=== PATIENT | female | born 1930 | race Caucasian/White ===

== ENCOUNTER 2016-02-20 12:02 | Emergency (ER) | payer MEDICARE ==
[~2016-02-20] VITALS: Ht 170.1 cm; Wt 77.1 kg
[~2016-02-20 12:02] MED LIST: ALPHAGAN P 5 ML5 M1 OS; AMOXIL500 MG PO; ASPIRIN81 M1 PO; ATENOLOL25 MG PO; ATROPINE 1% OD; ATROPINE 1% OPHT5 M1 OS; AVAPRO150 MG; BENICAR40 MG PO; CLONIDINE HCL0.2 MG PO; CLONIDINE0.3 MG PO; DARVOCET N 1001 TAB PO; DUREZOL 5 ML5 ML OS; Econopred Plus 15 ML OD; HYDR12.5C PO; HYDRALAZINE HYD50 MG PO; LEVOTHYROXINE0.05 MG PO; LISINOPRIL HCTZ1 TA1 PO; LISINOPRIL/HCTZ1 TA4 PO; LISINOPRIL20 MG PO; LUMIGAN50 DRP OS; MEDROL DOSEPAK4 MG PO; NO DAILY MEDS; NORVASC10 MG PO; NORVASC5 MG PO; PRILOSEC OTC20 MG PO; Synthroid,Levo25 MCG PO; TOBRADEX 0.3-03.5 GM OD; VALSARTAN160 MG PO; VALSARTAN80 MG PO; ZOFRAN ODT4 MG SL; ZYRTEC10 M2 PO
[2016-02-20 12:30] VITALS: BP 173/74
== END 2016-02-20 14:16 | disposition home or self-care (01) ==
LOC: ED 12:02
DX: S20.211A Contusion of right front wall of thorax, initial encounter (principal); I10 Essential (primary) hypertension; Z79.82 Long term (current) use of aspirin; Z91.030 Bee allergy status; W19.XXXA Unspecified fall, initial encounter; Y93.89 Activity, other specified; Y92.9 Unspecified place or not applicable; Y99.9 Unspecified external cause status

== ENCOUNTER 2016-07-21 20:13 | Emergency (ER) | payer MEDICARE ==
[~2016-07-21] VITALS: Ht 165.1 cm; Wt 81.2 kg
[2016-07-21 21:08] VITALS: BP 147/81
[2016-07-21] MEDS ORDERED: ATENOLOL25 MG PO (21:10)
[2016-07-21] MEDS ORDERED: COZAAR100 MG PO (21:10)
[2016-07-21] MEDS ORDERED: CEPHALEXIN500 M1 PO (21:25)
[2016-07-21] MEDS ORDERED: PREDNISONE10 MG PO (21:25)
== END 2016-07-21 21:29 | disposition home or self-care (01) ==
LOC: ED 20:13
DX: L24.9 Irritant contact dermatitis, unspecified cause (principal); H10.89 Other conjunctivitis; Z91.030 Bee allergy status; Z79.82 Long term (current) use of aspirin; Z79.899 Other long term (current) drug therapy

== ENCOUNTER 2016-12-11 11:11 | Emergency (ER) | payer MEDICARE ==
[~2016-12-11] VITALS: Ht 167.6 cm; Wt 81.6 kg
[~2016-12-11 11:11] MED LIST changes: +CEPHALEXIN500 M1 PO; +COZAAR100 MG PO; +PREDNISONE10 MG PO
[2016-12-11 11:21] VITALS: BP 157/78
== END 2016-12-11 11:49 | disposition home or self-care (01) ==
LOC: ED 11:11
DX: T63.484A Toxic effect of venom of other arthropod, undetermined, initial encounter (principal); Y93.89 Activity, other specified; Y92.89 Other specified places as the place of occurrence of the external cause; Y99.8 Other external cause status; Z91.030 Bee allergy status

== ENCOUNTER 2018-01-10 19:56 | Inpatient (IN) | payer MEDICARE ==
[~2018-01-10] VITALS: Ht 165.1 cm; Wt 77.3 kg
--- NOTE | ~2018-01-10 | EKG ---
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
--- NOTE | ~2018-01-10 | PR ---
[place], [place] PROGRESS NOTE NAME: ODALIS SANCHEZ UNIT #: [id number] ROOM: 532 DOCTOR: LAWRENCE CASTILLO MD BIRTHDATE: [birth year] DOS: 01/12/2018 SUBJECTIVE: The patient has some nausea, also complains of lower back pains. No increasing shortness of breath. Blood pressures and heart rates have improved. OBJECTIVE: GENERAL APPEARANCE: The patient is alert and oriented x 3, in no visible distress. VITAL SIGNS: Blood pressure 139/71, heart rate 78 beats per minute, breathing 18 times per minute, afebrile. HEENT AND NECK: Exam within normal limits except for aphakic left eye, loss of left eye. CARDIOVASCULAR SYSTEM: Heart rate is regular in rate and rhythm. S1 and S2 normally audible. LUNGS: Clear to auscultation. ABDOMEN: Soft, nontender. No obvious organomegaly. Bowel sounds are present. EXTREMITIES: Without significant cyanosis or edema. IMPRESSION: 1. The patient with right lower lobe pneumonia, being treated with antibiotics. I will repeat a chest x-ray in the morning. 2. Chronic kidney disease, stage 3A. 3. Nausea maybe related to IV antibiotics. 4. Some lower back pains. The patient has to move around more because she has mostly been in the bed to see if it helps. Her BUN and creatinine are elevated, so I will avoid NSAIDs. The patient says Tylenol does not help. 5. Benign essential hypertension, treated and controlled. Blood pressures are normal. LAWRENCE CASTILLO MD CM:PNTRANS [phone] LAWRENCE CASTILLO MD 01/13/18 0143 interface
--- NOTE | ~2018-01-10 | DS ---
[place], [place] DISCHARGE SUMMARY NAME: ODALIS SANCHEZ UNIT #: [id number] ROOM: 532 DOCTOR: LAWRENCE CASTILLO MD BIRTHDATE: [birth year] DOS: 01/13/2018 DISCHARGE DIAGNOSES: 1. The patient with right lower lobe pneumonia, improved with treatment. 2. Chronic kidney disease stage 3A. 3. Hypothyroidism. 4. Benign essential hypertension. 5. 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 6. Gastroesophageal reflux disease and esophagitis. 7. Mixed hyperlipidemia. 8. Sick sinus syndrome. HOSPITAL COURSE: 1. The patient admitted for right lower rib pains and was found to have right lower lobe pneumonia along with severely elevated blood pressures. After admission, the patient's blood pressures normalized and she was treated with IV Zosyn and pneumonia has almost resolved. The patient being sent home on Augmentin and she is feeling much better. 2. Benign essential hypertension with severely elevated blood pressures, now treated and controlled. 3. Chronic kidney disease stage 3A, stable. 4. Hypothyroidism, treated with levothyroxine and followed with free T4, TSH levels. LABORATORY DATA: Chest x-ray as mentioned above. BUN and creatinine 25 and 1.4. Normal serum electrolytes. DISCHARGE MANAGEMENT: Augmentin 875 mg twice a day for a week, eyedrops from home, vitamin D supplements, prednisolone eyedrops, losartan 150 mg a day, atenolol 12.5 mg daily, amlodipine 10 mg daily, levothyroxine 50 mcg a day, hydralazine 100 mg every 8 hours, Augmentin 875 mg twice a day for a week. Follow up with me in the office in 2 days. [place], [place] DISCHARGE SUMMARY NAME: ODALIS SANCHEZ UNIT #: [id number] ROOM: 532 DOCTOR: LAWRENCE CASTILLO MD BIRTHDATE: [birth year] LAWRENCE CASTILLO MD CM:DISCHARG [id number] LAWRENCE CASTILLO MD 01/13/18 1131 interface
--- NOTE | ~2018-01-10 | WRIGHTHP ---
[place], [place] PATIENT HISTORY AND PHYSICAL EXAM NAME: ODALIS SANCHEZ [facility] #: [id number] UNIT #: [id number] ROOM: 532 DOCTOR: LAWRENCE CASTILLO MD BIRTHDATE: [birth year] DOS: 01/10/2018 HISTORY OF PRESENT ILLNESS: The patient is an 87-year-old female with a past medical history of sick sinus syndrome, benign essential hypertension, hypothyroidism, mixed hyperlipidemia, GERD and esophagitis. The patient presented to the Emergency Department at [facility] and was seen by ____ for right rib pains and some shortness of breath and feeling sick. The patient also was found to have severely elevated blood pressures. After initial treatment she was recommended for admission and further management for right lower lobe pneumonia. After admission, the patient is starting to feel better with treatment. No dizziness or fainting episode. No other GI or urinary symptoms. REVIEW OF SYSTEMS: RESPIRATORY: Some increasing shortness of breath and right rib pains. GASTROINTESTINAL: No nausea, vomiting, diarrhea or constipation. CARDIOVASCULAR: No chest pains or palpitations. FAMILY HISTORY: Noncontributory. HOME MEDICATIONS: Vitamin D, losartan, atenolol, amlodipine, levothyroxine, hydralazine. ALLERGIES: Known allergies to BEE STINGS. PHYSICAL EXAMINATION: GENERAL: Alert, oriented x 3, in no visible distress. 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 HEENT AND NECK: Oral mucosa is moist and clean. No obvious facial weakness. Neck is supple without any lymphadenopathy. No thyromegaly. No JVD. No carotid arterial bruits. LUNGS: Clear to auscultation. No wheezing. No rhonchi. CARDIOVASCULAR SYSTEM: Heart rate is regular in rate and rhythm. S1 and S2 normally audible. No significant murmur or any other abnormal cardiac sounds. ABDOMEN: Soft, nontender. No obvious organomegaly. Bowel sounds are present. No obvious herniation. EXTREMITIES: Without significant cyanosis or edema. Warm to touch. CENTRAL NERVOUS SYSTEM: Alert and oriented x 3. Cranial nerves II-XII are intact. Speech is normal. The patient is able to move all extremities. Normal muscle strength. Deep tendon reflexes are equal on both sides. Plantars were downgoing. LABORATORY DATA: Chest x-ray is showing right basilar consolidation. BUN and creatinine 31 and 1.3. Normal CBC. IMPRESSION AND PLAN: 1. The patient with right lower lobe pneumonia, being treated with antibiotics, breathing treatments, oxygen and she is starting to feel better and I will repeat a chest x-ray in the morning. 2. Chronic kidney disease stage 3a, kidney function is to be monitored. [place], [place] PATIENT HISTORY AND PHYSICAL EXAM NAME: ODALIS SANCHEZ UNIT #: [id number] ROOM: [facility] DOCTOR: JONATHAN BLOUNT,LAWRENCE Dougherty BIRTHDATE: [birth year] 3. Hypothyroidism, replaced with levothyroxine, which is being continued. 4. Benign essential hypertension. Blood pressures are reasonably controlled. The patient continued on losartan, atenolol, hydralazine. Blood pressure is to be monitored and treatment adjusted as necessary. LAWRENCE CASTILLO MD CM:HISPHYS:PATIENT HISTORY AND PHYSICAL EXAMINATION [phone] LAWRENCE CASTILLO MD 01/11/181846 interface
[~2018-01-10 19:56] MED LIST changes: +LUMIGAN50 DRP OD; -LUMIGAN50 DRP OS
[2018-01-10 19:59] VITALS: BP 206/95
[2018-01-10 20:09] VITALS: BP 200/86
[2018-01-10 20:21] LABS: BASO % 0.4 % (0.0-1.0); EOS % 0.2 % (1.0-4.0); HEMATOCRIT 39.4 % (37.0-47.0); HEMOGLOBIN 12.8 g/dl (12.0-16.0); LYMPH # 1.3 10*3/uL (1.3-4.4); LYMPH % 16.3 % (27.0-41.0); MEAN CORPUSCULAR HGB 27.3 pg (27.0-31.0); MEAN CORPUSCULAR HGB CONC 32.5 g/dl (33.0-37.0); MEAN PLATELET VOLUME 9.1 fl (9.6-12.3); MONO # 0.7 10*3/uL (0.1-1.0); MONO % 8.5 % (3.0-9.0); NEUT # 5.9 10*3/uL (2.3-7.9); PLATELET COUNT AUTOMATED 229 10*3/uL (130-400); RED BLOOD COUNT 4.69 10*6/uL (4.10-5.10); RED CELL DISTRI WIDTH 14.8 % (0-14.5)
[2018-01-10 20:33] LABS: ACT PARTIAL THROMBO TIME 21.8 SECONDS (20.8-31.5)
[2018-01-10 20:37] LABS: ALBUMIN 3.8 gm/dl (3.1-4.5); ALKALINE PHOSPHATASE 53 U/L (45-117); BUN 31 mg/dl (7-24); CHLORIDE 100 mmol/L (98-107); CREATININE 1.32 mg/dL (0.55-1.02); POTASSIUM 3.9 mmol/L (3.5-5.1); SGOT/AST 21 IU/L (3-35); SGPT/ALT 27 U/L (12-78); SODIUM 137 mmol/L (136-145); TOTAL PROTEIN 7.3 gm/dL (6.4-8.2)
[2018-01-10 20:40] LABS: TROPONIN I < 0.015 ng/ml (<0.045)
[2018-01-10 20:55] VITALS: BP 188/88
[2018-01-10 21:20] VITALS: BP 180/88
[2018-01-10 21:31] LABS: BILIRUBIN NEGATIVE (NEGATIVE); BLOOD NEGATIVE (NEGATIVE); CLARITY CLEAR (CLEAR); COLOR YELLOW (YELLOW); GLUCOSE NEGATIVE (NEGATIVE); KETONE NEGATIVE (NEGATIVE); LEUKO ESTERASE NEGATIVE (NEGATIVE); NITRITE NEGATIVE (NEGATIVE); PH 5.5 (5.0-9.0); SPECIFIC GRAVITY 1.015 (1.005-1.030); UROBILINOGEN 0.2 E.U./dl (0.2-1.0)
[2018-01-10 21:38] LABS: RBC 0-2 rbc/hpf (0-2); WBC 0-2 wbc/hpf (0-5)
[2018-01-10 22:00] VITALS: BP 140/64
[2018-01-10 22:02] VITALS: BP 176/87
[2018-01-10] MEDS ORDERED: VITAMIN D31000 UNI1 PO (23:52)
[2018-01-11 01:53] VITALS: BP 158/90
[2018-01-11 08:00] VITALS: BP 154/68; BP 156/70
[2018-01-11 12:00] VITALS: BP 160/80
[2018-01-11 16:00] VITALS: BP 164/72
[2018-01-11 20:00] VITALS: BP 166/76
[2018-01-12] VITALS: BP 159/62
[2018-01-12 06:22] LABS: BASO % 0.5 % (0.0-1.0); EOS # 0.1 10*3/uL (0.0-0.4); EOS % 0.8 % (1.0-4.0); HEMATOCRIT 39.1 % (37.0-47.0); HEMOGLOBIN 12.3 g/dl (12.0-16.0); LYMPH # 1.5 10*3/uL (1.3-4.4); LYMPH % 23.3 % (27.0-41.0); MEAN CELL VOLUME 86.7 fl (81.0-99.0); MEAN CORPUSCULAR HGB 27.3 pg (27.0-31.0); MEAN CORPUSCULAR HGB CONC 31.5 g/dl (33.0-37.0); MEAN PLATELET VOLUME 9.6 fl (9.6-12.3); MONO # 0.7 10*3/uL (0.1-1.0); NEUT # 4.1 10*3/uL (2.3-7.9); NEUT % 64.1 % (47.0-73.0); PLATELET COUNT AUTOMATED 223 10*3/uL (130-400); RED BLOOD COUNT 4.51 10*6/uL (4.10-5.10); RED CELL DISTRI WIDTH 14.7 % (0-14.5); WHITE BLOOD COUNT 6.4 10*3/uL (4.8-10.8)
[2018-01-12 06:29] LABS: CREATININE 1.42 mg/dL (0.55-1.02); POTASSIUM 3.8 mmol/L (3.5-5.1)
[2018-01-12 08:01] VITALS: BP 144/86
[2018-01-12 12:00] VITALS: BP 150/80
[2018-01-12 16:00] VITALS: BP 139/71
[2018-01-12 20:00] VITALS: BP 145/59
[2018-01-13] VITALS: BP 122/60
[2018-01-13 08:00] VITALS: BP 125/51
[2018-01-13 08:40] VITALS: BP 130/60
[2018-01-13] MEDS ORDERED: AUGMENTIN 875-875 MG PO (10:52)
[2018-01-13 12:00] VITALS: BP 126/64
== END 2018-01-13 13:00 | disposition home or self-care (01) | DRG 304 ==
LOC: ED 19:56 → 5E 21:50 → EDHOLD 21:50 → 5E 22:09
PROVIDERS: Internal Medicine; Student in an Organized Health Care Education/Training Program
DX: I16.0 Hypertensive urgency (principal); J18.9 Pneumonia, unspecified organism; N18.4 Chronic kidney disease, stage 4 (severe); E03.9 Hypothyroidism, unspecified; M47.896 Other spondylosis, lumbar region; K21.0 Gastro-esophageal reflux disease with esophagitis; E78.5 Hyperlipidemia, unspecified; I12.9 Hypertensive chronic kidney disease with stage 1 through stage 4 chronic kidney disease, or unspecified chronic kidney disease; I49.5 Sick sinus syndrome; E78.2 Mixed hyperlipidemia; Z91.030 Bee allergy status; Z79.899 Other long term (current) drug therapy

== ENCOUNTER 2018-03-24 14:22 | Inpatient (IN) | payer MEDICARE ==
[~2018-03-24] VITALS: Ht 152.4 cm; Wt 78.2 kg
--- NOTE | ~2018-03-24 | PR ---
[place], [place] PROGRESS NOTE NAME: ODALIS SANCHEZ UNIT #: [id number] ROOM: 419 DOCTOR: MRAY CHARLES MD BIRTHDATE: [birth year] DOS: 03/27/2018 REASON FOR VISIT: Hypertension and bradycardia. SUBJECTIVE: The patient is feeling better. Denies any chest pain or shortness of breath. No palpitation, no dizziness, no edema, no orthopnea. No nausea, vomiting, diarrhea. No fever and chills. REVIEW OF SYSTEMS: Review of the 10 systems negative except as mentioned. PHYSICAL EXAMINATION: VITAL SIGNS: Blood pressure 150/64, pulse 54, respiratory rate 18, weight 72.5 kilos, BMI 33.7. GENERAL: Alert, comfortable, in no acute distress. 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 THROAT: Tongue was moist and pharynx clear. NECK: Supple, nondistended. No carotid bruit. CHEST: Symmetrical, nontender. LUNGS: Clear to auscultation bilaterally. HEART: Regular rate and rhythm, no S3, no palpable thrills. ABDOMEN: Benign, nontender. Bowel sounds normal. EXTREMITIES: Showed no edema. Distal pulses palpable. SKIN: Warm and dry. No cyanosis, no clubbing. RECTAL: Deferred. GENITOURINARY: Deferred. MEDICATIONS: Reviewed. LABORATORY DATA: Reviewed. ALLERGIES: Reviewed. IMPRESSION: 1. Transient ischemic attack. 2. Hypertension. 3. Sinus bradycardia. 4. Generalized weakness. RECOMMENDATIONS: 1. Her heart rates are much better. Also blood pressures are much better. If the blood pressure remains persistently high, then increase her blood pressure medication. 2. Her heart rates are better and there is no need for any pacemaker at this time unless she has symptomatic bradycardia with a heart rate less than 40. 3. Possible discharge tomorrow. 4. Above treatment and plan discussed with the patient and her family who is at bedside. [place], [place] PROGRESS NOTE NAME: ODALIS SANCHEZ UNIT #: [id number] ROOM: 419 DOCTOR: MARY CHARLES MD BIRTHDATE: [birth year] MARY CHARLES MD CM:FROYLAN [phone] MARY CHARLES MD 05/11/18 0648 interface
--- NOTE | ~2018-03-24 | EKG ---
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
--- NOTE | ~2018-03-24 | PR ---
[place], [place] PROGRESS NOTE NAME: ODALIS SANCHEZ UNIT #: [id number] ROOM: 419 DOCTOR: LAWRENCE CASTILLO MD BIRTHDATE: [birth year] DOS: 03/25/2018 SUBJECTIVE: The patient with severely elevated blood pressures. Overall, feeling well. OBJECTIVE: GENERAL APPEARANCE: The patient is alert and oriented x 3, in no visible distress. VITAL SIGNS: Blood pressure ranging between 168-210 systolic with heart rate ranging between 45-65 beats per minute, afebrile, breathing normally. HEENT AND NECK: Exam within normal limits. CARDIOVASCULAR SYSTEM: Heart rate is regular in rate and rhythm. S1 and S2 normally audible. LUNGS: Clear to auscultation. ABDOMEN: Soft, nontender. No obvious organomegaly. Bowel sounds are present. EXTREMITIES: Without significant cyanosis or edema. IMPRESSION: 1. The patient with transient ischemic attack with right-sided weakness, numbness and tingling, which has resolved. Carotid arterial Dopplers showed less than 50% stenosis. 2. Benign essential hypertension with severely elevated blood pressures and now bradycardia with treatment. I have consulted Cardiology to follow and the patient is being treated with losartan, amlodipine, hydralazine already. Metoprolol was stopped because of bradycardia. 3. Hypothyroidism, treated with levothyroxine. 4. Severe right knee osteoarthritis pains are being treated with Tylenol and local lidocaine gel. 5. Glaucoma is being treated with eyedrops. 6. I will get physical therapy to work with the patient. LAWRENCE CASTILLO MD CM:PNTRANS [phone] LAWRENCE CASTILLO MD 03/26/18730 interface
--- NOTE | ~2018-03-24 | PR ---
[place], [place] PROGRESS NOTE NAME: ODALIS SANCHEZ [place] UNIT #: [id number] ROOM: 419 DOCTOR: DAVID LILLY MD BIRTHDATE: [birth year] DOS: 03/26/2018 CARDIOLOGY PROGRESS NOTE: SUBJECTIVE: The patient was seen at her bedside today, 03/26/2018, for followup of her hypertension and possible transient ischemic attack. She states that anytime she gets out of bed, she feels her heart pound, but review of her monitor strip shows only sinus rhythm with mild sinus tachycardia. Her blood pressure remains elevated. We have been avoiding large doses of beta [place] because of bradycardia and a possible sick sinus syndrome. PHYSICAL EXAMINATION: VITAL SIGNS: Today, her pulse is 74 and regular, blood pressure is 176/75. NECK: Supple. She has no jugular distention. Carotids are full. LUNGS: Respirations are unlabored. Her chest is clear to auscultation and percussion. HEART: Has a regular rhythm with an S4 gallop. ABDOMEN: Benign. EXTREMITIES: Showed no edema. IMPRESSIONS: 1. Hypertensive urgency. 2. Transient ischemic attack. 3. Sick sinus syndrome with tachycardic symptoms and demonstrable bradycardia. 4. No previously documented history of coronary artery disease. PLAN: Thus far, she shows no signs of atrial fibrillation and her rate has been stable. I would like to start her on a small dose of metoprolol and observe her rhythm overnight. We will also start her on hydrochlorothiazide. If bradycardia becomes a problem again, we may need to consider placement of a pacemaker to allow the use of beta blockers in the future. I did review her echocardiogram and it shows normal left ventricular size and wall thickness with an ejection fraction of 65% and stage 1 diastolic relaxation abnormalities. She has aortic sclerosis, but no stenosis and no other significant valve abnormalities. I thank Dr. Davidsno for asking our advice regarding the patient's care. [place], [place] PROGRESS NOTE NAME: ODALIS SANCHEZ UNIT #: [id number] ROOM: 419 DOCTOR: DAVID LILLY MD BIRTHDATE: [birth year] DAVID LILLY MD CM:PNTRANS [id number] DAVID LILLY MD 03/27/18 0522 interface
--- NOTE | ~2018-03-24 | WRIGHTHP ---
[place], [place] PATIENT HISTORY AND PHYSICAL EXAM NAME: ODALIS SANCHEZ [facility] #: [id number] UNIT #: [id number] ROOM: 419 DOCTOR: LAWRENCE CASTILLO MD BIRTHDATE: [birth year] DOS: 03/24/2018 HISTORY OF PRESENT ILLNESS: The patient is an 88-year-old female with a past medical history of: 1. Chronic kidney disease stage IIIA. 2. Hypothyroidism. 3. Benign essential hypertension. 4. Chronic lower back pain and lumbar spondylosis. 5. GERD. 6. Esophagitis. 7. Mixed hyperlipidemia. 8. Sick sinus syndrome. The patient presented to the Emergency Department with complaints of weakness and tingling in the right upper and lower extremities including some right lower extremity weakness, which has improved after coming to the hospital. The patient's CT of the head showed no acute intracranial process and she was admitted to look for TIA and stroke progression. After admission, the tingling and weakness on right lower extremity has improved and she is complaining of significant chronic right knee pain from osteoarthritis and requesting medication. The patient's feet was somewhat tired because she has been up all day and spent many hours in the Emergency Department. No chest pain, shortness of breath, no GI or urinary symptoms. REVIEW OF SYSTEMS: RESPIRATORY: No increasing shortness of breath, wheezing. GASTROINTESTINAL: No nausea, vomiting, diarrhea, constipation. CARDIOVASCULAR SYSTEM: No chest pain or palpitations. ALLERGIES: Known allergies to BEE STINGS. FAMILY HISTORY: Noncontributory. HOME MEDICATIONS: Losartan, levothyroxine, atenolol, aspirin, amlodipine, hydralazine, bimatoprost eyedrops. PHYSICAL EXAMINATION: GENERAL: Alert, oriented, no visible distress. HEENT: Left eye is aphakic. Otherwise, standard exam, just generalized weakness. LABORATORY DATA: CT scan was normal. Chest x-ray without acute abnormality. Normal CBC except for hemoglobin of 11.3. IMPRESSION: 1. Transient ischemic attack with right-sided weakness, numbness and tingling has improved. I started her on neuro checks and we will check carotid arterial Dopplers. The patient already on aspirin, which is being continued. 2. Significant right knee osteoarthritis with pain to be treated with Tylenol [place], [place] PATIENT HISTORY AND PHYSICAL EXAM NAME: ODALIS SANCHEZ UNIT #: [id number] ROOM: [facility] DOCTOR: LAWRENCE CASTILLO MD BIRTHDATE: [birth year] and lidocaine gel, which will be applied to her knee. 3. Benign essential hypertension with severely elevated blood pressures at 222 systolic, which is being treated and her home medications, which are hydralazine, atenolol and losartan are being continued. Blood pressure will be monitored closely. 4. Glaucoma to be treated with eyedrops. LAWRENCE CASTILLO MD CM:HISPHYS:PATIENT HISTORY AND PHYSICAL EXAMINATION [phone] LAWRENCE CASTILLO MD 03/25/18 0038 interface
--- NOTE | ~2018-03-24 | DS ---
[place], [place] DISCHARGE SUMMARY NAME: ODALIS SANCHEZ [facility] #: [id number] UNIT #: [id number] ROOM: 419 DOCTOR: LAWRENCE CASTILLO MD BIRTHDATE: [birth year] DOS: 03/28/2018 HOSPITAL COURSE: The patient was admitted when she presented to the Emergency Department with increased weakness and tingling in the right upper and lower extremities along with weakness. The patient's weakness had resolved and tingling was also resolving and this was taken as a transient ischemic attack. Also, the patient's blood pressures were found to be extremely high going up to 222 systolic. The patient was admitted and carotid arterial Dopplers were checked, which showed less than 50% stenosis. Neuro checks were performed and the patient improved and became asymptomatic with no neurological deficits anymore. Severe hypertension with elevated blood pressures, which was initially treated with hydralazine, losartan and Norvasc along with atenolol. The patient was given IV Lopressor, which caused severe bradycardia, heart rate of around 40 beats per minute. The patient's atenolol was stopped and she was started on low dose of Lopressor and hydrochlorothiazide. Her blood pressures are better now and ranging between 120 systolic to 160 systolic and heart rate is staying between 62 beats per minute to 98 beats per minute. The patient has been cleared by Cardiology to go home today. Glaucoma, being treated with eyedrops. Significant right knee osteoarthritic pains, treated with Tylenol and lidocaine gel. During her stay at the hospital, the patient developed some nausea, which was treated with Zofran and resolved. Hypothyroidism, replaced with levothyroxine. Glaucoma, treated with eyedrops. LABORATORY DATA: Echocardiogram was normal. Carotid arterial Doppler showed less than 50% stenosis, bilateral. BUN and creatinine was [address] of the head without acute abnormality. DISCHARGE MANAGEMENT: Metoprolol 25 mg b.i.d., losartan 100 mg daily, aspirin 81 mg a day, amlodipine 10 mg a day, levothyroxine 50 mcg daily, Tylenol 1000 mg every 8 hours, lidocaine skin cream to affected right knee 3 times a day, hydralazine 100 mg every 8 hours, [place] eyedrops 1 drop at bedtime, prednisolone eye drops 1 drop b.i.d. Follow up at the office on Thursday. [place], [place] DISCHARGE SUMMARY NAME: ODALIS SANCHEZ UNIT #: [id number] ROOM: 419 DOCTOR: LAWRENCE CASTILLO MD BIRTHDATE: [birth year] LAWRENCE CASTILLO MD CM:DISCHERIK [id number] LAWRENCE CASTILLO MD 03/29/18 0038 interface
--- NOTE | ~2018-03-24 | PR ---
[place], [place] PROGRESS NOTE NAME: ODALIS SANCHEZ UNIT #: [id number] ROOM: 419 DOCTOR: LAWRENCE CASTILLO MD BIRTHDATE: [birth year] DOS: 03/27/2018 SUBJECTIVE: The patient is feeling well. OBJECTIVE: VITAL SIGNS: Blood pressure 149/65, range going up to 184 systolic over 75 diastolic, heart rate ranging between 60 to 80 beats per minute, afebrile. GENERAL APPEARANCE: The patient is alert and oriented x 3, in no visible distress. HEENT: Left eye blindness. NECK: Exam within normal limits. CARDIOVASCULAR SYSTEM: Heart rate is regular in rate and rhythm. S1 and S2 normally audible. LUNGS: Clear to auscultation. ABDOMEN: Soft, nontender. No obvious organomegaly. Bowel sounds are present. EXTREMITIES: Without significant cyanosis or edema. IMPRESSION AND PLAN: 1. The patient with benign essential hypertension with severely elevated blood pressures and bradycardia has significantly improved. The patient's atenolol was stopped and she is on a small dose of metoprolol along with hydrochlorothiazide and losartan along with amlodipine. Blood pressure is being monitored and treated. The patient is also on hydralazine. 2. Glaucoma, being treated with eyedrops. 3. Hypothyroidism, replaced with levothyroxine. 4. Acute nausea this morning, treated with ondansetron, is asymptomatic now. LAWRENCE CASTILLO MD CM:PNTRANS [phone] LAWRENCE CASTILLO MD 03/28/18 1100 interface
--- NOTE | ~2018-03-24 | PR ---
[place], [place] PROGRESS NOTE NAME: ODALIS SANCHEZ UNIT #: [id number] ROOM: 419 DOCTOR: LAWRENCE CASTILLO MD BIRTHDATE: [birth year] DOS: 03/26/2018 SUBJECTIVE: GENERAL: The patient is feeling well, but blood pressure is remaining high ranging between 150 systolic to 186 systolic, heart rate of 73 beats per minute, and breathing 18 times per minute, afebrile. HEENT AND NECK: Exam within normal limits. CARDIOVASCULAR SYSTEM: Heart rate is regular in rate and rhythm. S1 and S2 normally audible. LUNGS: Clear to auscultation. ABDOMEN: Soft, nontender. No obvious organomegaly. Bowel sounds are present. EXTREMITIES: Without significant cyanosis or edema. IMPRESSION: 1. Benign essential hypertension with severely elevated blood pressures. The patient underwent echocardiogram today and is being treated with losartan, amlodipine, hydralazine, and Cardiology is following. 2. Hypothyroidism, treated with levothyroxine. 3. Transient ischemic attack with right-sided weakness and tingling and numbness is resolved, and carotid arterial Doppler showing less than 50% stenosis. 4. Glaucoma is being treated with eyedrops. 5. The patient is an adult failure to thrive and old age the patient to work in with physical therapy. 6. Hypothyroidism, treated with levothyroxine. LAWRENCE CASTILLO MD CM:PNTRANS [phone] LAWRENCE CASTILLO MD 03/27/18 0312 interface
--- NOTE | ~2018-03-24 | CON ---
[place], [place] REPORT OF CONSULTATION NAME: ODALIS SANCHEZ [facility] #: [id number] UNIT #: [id number] ROOM: 419 DOCTOR: DAVID LILLY MD BIRTHDATE: [birth year] DOS: 03/25/2018 REASON FOR CONSULTATION: TIA, hypertension. HISTORY OF PRESENT ILLNESS: The patient is an 88-year-old woman who does have a long history of hypertension along with hypothyroidism, hyperlipidemia and gastroesophageal reflux disease. She has no previously documented history of coronary artery disease. A catheterization in 2003 and an echocardiogram in 2011 were normal. A subsequent echocardiogram in 02/2015 showed normal left ventricular size, wall motion and systolic function without any significant valve abnormalities. She was evaluated in July 2014 after a fall and was found to have significant bradycardia. It was thought that she probably did have a sick sinus syndrome, but was not symptomatic. My recommendation at that time was that we avoid any heart rate slowing medications. The patient presented to the hospital on this occasion with a complaint that she had numbness, tingling and a heavy sensation in her right arm, which lasted 10-15 minutes. She also said her right leg felt funny. On the other hand, she did not have any speech difficulty and no one described any facial weakness. She did not drop any objects and did not fall when she tried to walk. Her symptoms resolved within several minutes, but in the Emergency Room, she was noted to have significant hypertension and therefore she was admitted for further assessment and care. Since she has been in the hospital, her blood pressure has fallen gradually and she states that she feels back to normal now. A CT scan of her head showed no acute stroke. A carotid ultrasound showed atherosclerotic plaque, but less than 50% stenoses bilaterally. Troponin levels have been normal. PAST MEDICAL HISTORY: Includes: 1. Essential hypertension. 2. Hyperlipidemia. 3. Chronic renal insufficiency, stage 3. 4. Hypothyroidism. 5. Sick sinus syndrome with bradycardia as well as symptoms of tachycardia. The patient has not been diagnosed as having any prolonged pauses or any atrial fibrillation. 6. Glaucoma. 7. Gastroesophageal reflux disease. 8. Status post corneal transplant. 9. Heart catheterization in 2003, reportedly normal. FAMILY HISTORY: The patient's mother at age 66 due to a stroke and she did have a history of heart disease. Her father at age 76 from a heart attack. MEDICATIONS: Prior to admission, Lumigan eyedrops at bedtime, prednisolone eyedrops b.i.d., amlodipine 10 mg daily, aspirin 81 mg daily, atenolol 12.5 mg daily, vitamin D 1000 units daily, hydralazine 100 mg q. 8 hours, levothyroxine 50 mcg daily, losartan 100 mg daily. ALLERGIES: She listed allergy to BEE STINGS. [place], [place] REPORT OF CONSULTATION NAME: ODALIS SANCHEZ UNIT #: [id number] ROOM: 419 DOCTOR: DAVID LILLY MD BIRTHDATE: [birth year] REVIEW OF SYSTEMS: The patient denies any recent change in her vision. 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 She denies fevers, chills, sweats or recent weight change. She did have the tingling and numbness with a weak sensation on her right side prior to admission that has since resolved. She denies nausea or vomiting. She denies hemoptysis or hematemesis. She denies abdominal pain or change in bowel or bladder habits. She denies blood in her stools or urine. She denies any peripheral edema at the present time. She states that in the past, she has had occasional edema. The remainder of her review of systems is negative except as noted above. SOCIAL HISTORY: The patient does not smoke or consume alcohol. PHYSICAL EXAMINATION: GENERAL: The patient is an elderly white female who is awake, alert and oriented. VITAL SIGNS: Pulse is 60 and regular, blood pressure on my measurement during the exam was 152/60 in both arms. She is afebrile. She weighs 78.2 kg and has a body mass index of 33.7. HEENT: Head is normocephalic and atraumatic. Her right eye has normal movement. She is blind in her left and has white sclerae across her entire eye. Her oral mucosa is moist and tongue is midline. Face is symmetric and she has no speech deficits. NECK: Her neck is supple. She has no jugular distention. Carotids are full. There are no bruits. She has no neck or supraclavicular masses and no thyromegaly. LUNGS: Respirations are unlabored. Her chest is clear to auscultation and percussion. She has no presacral edema or chest wall tenderness. HEART: Has a regular rhythm. She has a fourth heart sound, but no third heart sound. She has a grade 2/6 systolic ejection murmur along the left sternal border. There is no diastolic murmur. The PMI is not displaced. There is no precordial heave, lift or thrill. ABDOMEN: Soft and normally active without masses, organomegaly or bruits. EXTREMITIES: Showed no edema. Pedal pulses were diminished, but palpable in the feet bilaterally. LABORATORY DATA: I reviewed her electrocardiogram, which showed no acute changes. The hemoglobin is 11.3, white count 5800, platelet count 185,000. Sodium 141, potassium 4.2, chloride 107, CO2 28, BUN 20, creatinine 1.19. Troponin was normal. IMPRESSIONS: 1. Hypertensive urgency. 2. Transient ischemic attacks. It is not clear if the high blood pressure caused the neurologic symptoms or if anxiety over the neurologic symptoms resulted in high blood pressure. 3. Sick sinus syndrome with tachycardic symptoms and demonstrable bradycardia. 4. No previously documented history of coronary artery disease. PLAN: We will continue to observe her on a compliance monitor. If her rhythm [place], [place] REPORT OF CONSULTATION NAME: ODALIS SANCHEZ UNIT #: [id number] ROOM: 419 DOCTOR: DAVID LILLY MD BIRTHDATE: [birth year] seems stable in the hospital, we will probably discharge her with a 30-day event recorder. I would avoid all rate slowing medications for the time being in order to prevent further bradycardia. If she has both bradycardic and tachycardic features to her conduction system disorder then she may require placement of a pacemaker with subsequent medical therapy utilizing a beta-[place] or diltiazem to slow her rapid rates. In addition, if she is documented as having atrial fibrillation she will require oral anticoagulation. We will follow her with Dr. Davidson in the hospital. We thank Dr. Mendes for asking our advice regarding her care. DAVID LILLY MD CM:CONSTR:REPORT OF CONSULTATION 1220 03/25/18 1340 interface
--- NOTE | ~2018-03-24 | PR ---
[place], [place] PROGRESS NOTE NAME: ODALIS SANCHEZ UNIT #: [id number] ROOM: 419 DOCTOR: MARY CHARLES MD BIRTHDATE: [birth year] DOS: 03/28/2018 CARDIOLOGY FOLLOWUP VISIT NOTE REASON FOR VISIT: Hypertension, bradycardia. SUBJECTIVE: The patient is feeling better. Denies any chest pain, shortness breath. No palpitations, no dizziness, no edema, no orthopnea. She is sitting next to the chair in the bed with her family at bedside. REVIEW OF SYSTEMS: Review of the 8 systems negative except as mentioned above. RHYTHM STRIPS: The patient is in sinus rhythm. PHYSICAL EXAMINATION: VITAL SIGNS: Blood pressure 110/50, pulse 76, respiratory rate 16, weight 78.2 kilos. GENERAL: Alert, comfortable, in no acute distress. HEENT: Pupils are equal, no jaundice. 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 NECK: Supple, no distended neck veins, no carotid bruit. CHEST: Symmetrical, nontender. LUNGS: Clear to auscultation bilaterally. HEART: Regular rhythm, no S3, no palpable thrills. ABDOMEN: Benign, nontender. Bowel sounds normal. EXTREMITIES: Showed trace edema. Distal pulses palpable. SKIN: Warm and dry. No cyanosis, no clubbing. MEDICATIONS, ALLERGIES AND LABORATORY: Reviewed. IMPRESSION: 1. Hypertension, currently stable. 2. Sinus bradycardia, stable. 3. Transient ischemic attack. 4. Generalized weakness. RECOMMENDATIONS: She is stable from cardiac standpoint and she can be discharged home from the cardiac standpoint. Above treatment plan discussed with the patient and her family member who is at bedside and all questions were answered. [place], [place] PROGRESS NOTE NAME: ODALIS SANCHEZ UNIT #: [id number] ROOM: 419 DOCTOR: MARY CHARLES MD BIRTHDATE: [birth year] MARY CHARLES MD CM:PNTRANS [id number] MARY CHARLES MD 06/11/18 1338 interface
[2018-03-24 14:22] VITALS: BP 192/77
[~2018-03-24 14:22] MED LIST changes: +AUGMENTIN 875-875 MG PO; +VITAMIN D31000 UNI1 PO
[2018-03-24 15:14] LABS: BASO % 0.3 % (0.0-1.0); EOS % 0.7 % (1.0-4.0); HEMATOCRIT 35.4 % (37.0-47.0); HEMOGLOBIN 11.3 g/dl (12.0-16.0); LYMPH # 1.3 10*3/uL (1.3-4.4); LYMPH % 21.8 % (27.0-41.0); MEAN CELL VOLUME 86.8 fl (81.0-99.0); MEAN CORPUSCULAR HGB 27.7 pg (27.0-31.0); MEAN CORPUSCULAR HGB CONC 31.9 g/dl (33.0-37.0); MEAN PLATELET VOLUME 9.7 fl (9.6-12.3); MONO # 0.5 10*3/uL (0.1-1.0); MONO % 9.2 % (3.0-9.0); NEUT # 3.9 10*3/uL (2.3-7.9); NEUT % 67.5 % (47.0-73.0); PLATELET COUNT AUTOMATED 185 10*3/uL (130-400); RED BLOOD COUNT 4.08 10*6/uL (4.10-5.10); WHITE BLOOD COUNT 5.8 10*3/uL (4.8-10.8)
[2018-03-24 15:25] LABS: ACT PARTIAL THROMBO TIME 22.7 SECONDS (20.8-31.5)
[2018-03-24 15:29] LABS: ALBUMIN 3.5 gm/dl (3.1-4.5); ALKALINE PHOSPHATASE 49 U/L (45-117); BUN 20 mg/dl (7-24); CHLORIDE 107 mmol/L (98-107); CREATININE 1.19 mg/dL (0.55-1.02); POTASSIUM 4.2 mmol/L (3.5-5.1); SGOT/AST 17 IU/L (3-35); SGPT/ALT 21 U/L (12-78); SODIUM 141 mmol/L (136-145); TOTAL PROTEIN 6.6 gm/dL (6.4-8.2)
[2018-03-24 15:32] LABS: TROPONIN I < 0.015 ng/ml (<0.045)
[2018-03-24 16:26] LABS: BILIRUBIN NEGATIVE (NEGATIVE); BLOOD NEGATIVE (NEGATIVE); CLARITY CLEAR (CLEAR); COLOR YELLOW (YELLOW); GLUCOSE NEGATIVE (NEGATIVE); KETONE NEGATIVE (NEGATIVE); LEUKO ESTERASE NEGATIVE (NEGATIVE); NITRITE NEGATIVE (NEGATIVE); PH 5.5 (5.0-9.0); SPECIFIC GRAVITY <= 1.005 (1.005-1.030); UROBILINOGEN 0.2 E.U./dl (0.2-1.0)
[2018-03-24 17:55] VITALS: BP 222/94
--- NOTE | 2018-03-24 17:55 | NUR ---
A 88, admitted to 4E, under the services of Dr. JONATHAN BLOUNT,LAWRENCE Dougherty with a diagnosis of TIA. Chief complaint is GENERALIZED WEAKNESS.. Patient arrived via bed from ER. Monitor applied. Initial assessment completed. Vital signs taken and recorded. DR. JONATHAN BLOUNT,LAWRENCE Dougherty notified of admission to the unit. Orders received. See assessment for past medical history, medications and allergies. Patient and/or family oriented to unit. [facility] visitation policy reviewed. Clothing/patient valuable form completed. DAYLIN CAUSEY
--- NOTE | 2018-03-24 18:02 | NUR ---
ADMISSION COMPLETED. SHORTY LUKE.ASSUMED CARE.
--- NOTE | 2018-03-24 18:12 | NUR ---
SPOKE WITH DR CASTILLO REGARDING ADMISSION ORDERS. PER DR CASTILLO HE WILL COME SEE PATIENT. MAINTATIN NEURO CHECKS AND ORDER CLONIDIN 0.1MG PO NOW. NO OTHER ORDERS AT THIS TIME.
[2018-03-24] MEDS ORDERED: ASPIRIN CHEWABL81 MG PO (18:39)
--- NOTE | 2018-03-24 19:00 | NUR ---
PT AWAKE IN BED W/FAMILY AT BEDSIDE DURING BEDSIDE SHIFT REPORT. NO C/O VOICED AT PRESENT TIME. CALL LIGHT IN REACH.
[2018-03-24 20:00] VITALS: BP 212/77
--- NOTE | 2018-03-24 20:18 | NUR ---
DR. CASTILLO NOTIFIED OF PT'S MANUAL BP OF 210/94. GIVE 2200 PO MEDS NOW AND LOPRESSOR 5MG IVP X1 NOW.
[2018-03-24 20:30] VITALS: BP 210/94
[2018-03-24 21:40] VITALS: BP 204/92
--- NOTE | 2018-03-24 21:56 | NUR ---
DR. CASTILLO NOTIFIED OF PT'S BP OF 204/92 MANUALLY AND HR OF 42. MONITOR PT TONIGHT.
[2018-03-25] VITALS: BP 176/77
[2018-03-25 05:30] VITALS: BP 210/88
--- NOTE | 2018-03-25 08:05 | NUR ---
CARDIOLOGY NOTIFIED OF CONSULT WITH DR. LILLY.
--- NOTE | 2018-03-25 08:11 | NUR ---
DR. LILLY NOTIFIED OF CONUSULT. NEW ORDERS GIVEN.
[2018-03-25 12:00] VITALS: BP 136/48
[2018-03-25 16:00] VITALS: BP 168/81
--- NOTE | 2018-03-25 16:00 | NUR ---
[employer] in to talk to patient. Patient states lives at home alone with her daughter checking in on her frequently. There are 0 steps in the home. Physician: Dr. Nabeel Davidson Pharmacy: [facility] Home health services: has had [facility] previously but not currently Patient's level of ADLs: INDEPENDENT Patient has working utilities: yes DME: walker Follow-up physician's appointment after d/c: she prefers to make her own follow up appt after discharge Does patient want to access PORTAL?: no Discharge plan discussed with patient. She lives at home alone with her daughter checking in on her frequently. She is independent in her ADLs and ambulation. She does have a walker if she needs to use it. Discussed home health care services and she denies any home needs at this time. When medically stable she will be discharged to home. THANH PAREKH
--- NOTE | 2018-03-25 16:33 | NUR ---
PHYSICAL THERAPY PAtient evalauted on 4, full evaluation to follow. Continue with PT as per plan of care with fall and cardiac precautions with recentc/o's of heart racing and blood pressure difficulties per patient. Home, as prior, home health Rn PRN. PAtient is moderate complexitu via chart review, tests and evaluation: 69150. Thank you for this referral. buzz Smiley,PT
[2018-03-25 20:00] VITALS: BP 186/82
[2018-03-25 20:14] VITALS: BP 172/82
--- NOTE | 2018-03-25 20:15 | NUR ---
ASSUMED CARE OF PATIENT, PATIENT IS RESTING IN BED WITH EASY AND REGULAR RESPERS ON ROOM AIR. ASSESSMENT IS COMPLETE WITH EASY AND REGULAR RESPERS ON ROOM AIR. PATIENT ASSISTED TO RESTROOM WHERE SHE HAD A BM, AND THEN ASSISTED BACK TO BED. 2000 EYEDROPS ADMINISTERED AT THIS TIME, PATIENT TOLERATED WELL. BED IS LOW, LOCKED, ALARMED, AND CALL LIGHT IS WITHIN REACH. MANUAL BLOOD PRESSURE TAKEN 172/82.
--- NOTE | 2018-03-25 21:03 | NUR ---
SPOKE WITH DR. ORTIZ REGARDING BLOOD PRESSURE, 0.1 CLONIDINE ORDERED AT THIS TIME.
[2018-03-26] VITALS: BP 113/60
[2018-03-26 08:00] VITALS: BP 151/54
--- NOTE | 2018-03-26 09:00 | NUR ---
[employer] in to see patient. No new needs or request at this time. She denies any home needs at this time. When medically stable she will be discharged to home.
--- NOTE | 2018-03-26 10:01 | NUR ---
PATIENT GETTING AN ECHOCARDIGRAM AT THIS TIME. WILL CHECK BACK LATER. [facility] INTERN
[2018-03-26 12:00] VITALS: BP 176/75
[2018-03-26 16:00] VITALS: BP 128/60
[2018-03-26 20:00] VITALS: BP 149/65
--- NOTE | 2018-03-26 20:00 | NUR ---
PT RESTING IN BED. RESP-EASY AND REGULAR. NO C/O AT THIS TIME. 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 TAKOTNA. CALL LIGHT IN REACH. BED ALARM ON.
--- NOTE | 2018-03-26 22:00 | NUR ---
PT RESTING IN BED. TOLERATED ROUTINE MED WITH NO PROBLEM. NO C/O AT THIS TIME. CALL LIGHT IN REACH. BED ALARM ON.
[2018-03-27] VITALS: BP 184/75
--- NOTE | 2018-03-27 00:25 | NUR ---
PT RESTING IN BED ON RIGHT SIDE. RESP-EASY AND REGULAR. NO C/O AT THIS TIME. CALL LIGHT IN REACH. SEE SHIFT ASSESSMENT.
--- NOTE | 2018-03-27 04:00 | NUR ---
RESING IN BED WITH EYES CLOSED. RESP-EASY AND REGULAR. CALL LIGHT IN REACH. BED ALARM ON.
--- NOTE | 2018-03-27 06:30 | NUR ---
PT TOLERATED ROUTINE MED WITH NO PROBLEM. C/O BACK PAIN, RATES PAIN 5 ON PAIN SCALE 0-10. MEDICATED WITH TYLENOL TWO TABPO PER PRN ORDER, SEE EMAR. CALL LIGHT IN REACH.
[2018-03-27 09:14] VITALS: BP 150/64
--- NOTE | 2018-03-27 09:15 | NUR ---
PATIENT RECEIVED ZOFRAN FOR NAUSEA.
[2018-03-27 12:00] VITALS: BP 155/66
[2018-03-27 16:00] VITALS: BP 160/73
--- NOTE | 2018-03-27 19:30 | NUR ---
Patient resting quietly with no c/o discomfort. Respirations easy and regular. Vital signs stable. No overt distress. HAN RAMOS
[2018-03-27 20:00] VITALS: BP 156/76
[2018-03-28] VITALS: BP 140/72
--- NOTE | 2018-03-28 01:41 | NUR ---
24 HR chart check completed.
--- NOTE | 2018-03-28 04:00 | NUR ---
Patient resting quietly with no c/o discomfort. Respirations easy and regular. Vital signs stable. No overt distress. HAN RAMOS
[2018-03-28 08:00] VITALS: BP 110/50
[2018-03-28 12:00] VITALS: BP 157/71
[2018-03-28 14:13] VITALS: BP 118/68
[2018-03-28] MEDS ORDERED: METOPROLOL SUCC25 M2 PO (15:58)
[2018-03-28 16:00] VITALS: BP 115/56
--- NOTE | 2018-03-28 16:45 | NUR ---
Discharge instructions reviewed with patient/family. Patient receptive and verbalizes understanding. Follow-up care arranged. Written instructions given to patient/family. HAN DAVALOS
--- NOTE | 2018-03-29 07:43 | NUR ---
PHYSICAL THERAPY CO-SIGN I approve of the Phyical Therapy notes written above. KELI REYES PT
== END 2018-03-28 16:45 | disposition home or self-care (01) | DRG 69 ==
LOC: ED 14:22 → 4E 17:04 → EDHOLD 17:04 → 4E 17:29
PROVIDERS: Physician Assistant; ADMIT Internal Medicine
DX: G45.9 Transient cerebral ischemic attack, unspecified (principal); E87.2 Acidosis; M17.11 Unilateral primary osteoarthritis, right knee; I16.0 Hypertensive urgency; I49.5 Sick sinus syndrome; K21.9 Gastro-esophageal reflux disease without esophagitis; Z91.030 Bee allergy status; Z82.49 Family history of ischemic heart disease and other diseases of the circulatory system; Z82.3 Family history of stroke; N18.3 Chronic kidney disease, stage 3 (moderate); E03.9 Hypothyroidism, unspecified; M47.9 Spondylosis, unspecified; Z79.4 Long term (current) use of insulin; E78.5 Hyperlipidemia, unspecified; H40.9 Unspecified glaucoma; I48.91 Unspecified atrial fibrillation; I25.10 Atherosclerotic heart disease of native coronary artery without angina pectoris; Z95.5 Presence of coronary angioplasty implant and graft

== ENCOUNTER → 2018-08-18 | Outpatient (CLI) | payer MEDICARE ==
[~2018-08-18] MED LIST changes: +ASPIRIN CHEWABL81 MG PO; +METOPROLOL SUCC25 M2 PO
[2018-08-18 14:37] LABS: BASO % 0.5 % (0.0-1.0); EOS # 0.1 10*3/uL (0.0-0.4); EOS % 0.8 % (1.0-4.0); HEMATOCRIT 33.2 % (37.0-47.0); HEMOGLOBIN 10.2 g/dl (12.0-16.0); LYMPH # 1.5 10*3/uL (1.3-4.4); LYMPH % 23.6 % (27.0-41.0); MEAN CELL VOLUME 86.2 fl (81.0-99.0); MEAN CORPUSCULAR HGB 26.5 pg (27.0-31.0); MEAN CORPUSCULAR HGB CONC 30.7 g/dl (33.0-37.0); MEAN PLATELET VOLUME 10.3 fl (9.6-12.3); MONO # 0.5 10*3/uL (0.1-1.0); MONO % 7.5 % (3.0-9.0); NEUT # 4.2 10*3/uL (2.3-7.9); NEUT % 67.1 % (47.0-73.0); PLATELET COUNT AUTOMATED 228 10*3/uL (130-400); RED BLOOD COUNT 3.85 10*6/uL (4.10-5.10); RED CELL DISTRI WIDTH 14.8 % (0-14.5); WHITE BLOOD COUNT 6.3 10*3/uL (4.8-10.8)
[2018-08-18 15:10] LABS: ALBUMIN 3.7 gm/dl (3.1-4.5); CREATININE 1.16 mg/dL (0.55-1.02); POTASSIUM 4.5 mmol/L (3.5-5.1)
[2018-08-18 15:16] LABS: FREE T4 1.17 ng/dl (0.76-1.46); THYROID STIM HORMONE (HS) 2.54 uIU/ml (0.358-4.75)
== END | disposition home or self-care (01) ==
LOC: LAB 13:28
PROVIDERS: Internal Medicine
DX: E78.2 Mixed hyperlipidemia (principal); I10 Essential (primary) hypertension; E03.9 Hypothyroidism, unspecified; E55.9 Vitamin D deficiency, unspecified; D52.9 Folate deficiency anemia, unspecified; D51.9 Vitamin B12 deficiency anemia, unspecified